=== PATIENT | male | born 1990 | race Two or more races ===

== ENCOUNTER 2019-07-10 14:56 | Emergency (ER) | payer SELFPAY ==
[~2019-07-10] VITALS: Ht 182.9 cm; Wt 87.3 kg
[2019-07-10 15:03] VITALS: Ht 182.9 cm; Wt 87.3 kg
[2019-07-10] MEDS ORDERED: SMZ-TMP DS TABL1 TAB PO (15:38)
[2019-07-10] MEDS ORDERED: HYDROCODON-ACE1 EAC7 PO (15:38)
[2019-07-10 16:16] VITALS: BP 140/71
== END 2019-07-10 16:17 | disposition home or self-care (01) ==
LOC: D.ER 14:56
DX: L02.214 Cutaneous abscess of groin (principal)